=== PATIENT | female | born 1990 | race Two or more races ===

== ENCOUNTER 2016-11-09 18:39 | Emergency (ER) | payer OTHER ==
[2016-11-09 18:49] VITALS: RESP 18
--- NOTE | 2016-11-09 19:10 | EDPHY ---
H & P Time Seen by Provider: 11/09/16 18:57 HPI/ROS: CHIEF COMPLAINT: Back pain, urinary frequency HISTORY OF PRESENT ILLNESS: 26-year-old female presents to the emergency department by private vehicle complaining of mid to low back pain and urinary frequency. Symptoms started yesterday with urinary frequency. She denies dysuria or hematuria. She has a history of frequent bladder infections. She has never had pyelonephritis in the past. She feels nauseous although no vomiting. No abdominal pain. She is currently on her menstrual cycle. She is concerned about possible kidney infection. She states that her pain in her back is not worse with movement. REVIEW OF SYSTEMS: Constitutional: No fever, no chills. Eyes: No double or blurry vision. ENT: No sore throat. Respiratory: No cough, no shortness of breath. Cardiac: No chest pain. Gastrointestinal: Nausea. No abdominal pain, vomiting or diarrhea. Genitourinary: No dysuria. Musculoskeletal: Back pain. No neck pain. Skin: No rashes. Neurological: No headache. Past Medical/Surgical History: Chronic back pain Social History: Single Smoking Status: Current every day smoker Physical Exam: General Appearance: Alert, no distress. Afebrile and nontoxic-appearing. Eyes: Pupils equal and round. Extraocular motions are all intact. ENT: Mouth: Mucous membranes moist. Respiratory: No wheezing, rhonchi, or rales, lungs are clear to auscultation. Cardiovascular: Regular rate and rhythm. Gastrointestinal: Abdomen is soft and nontender, no masses, no rebound or guarding, bowel sounds normal. No CVA tenderness bilaterally. Neurological: Alert and oriented x 3, cranial nerves II through XII grossly intact Skin: Warm and dry, no rashes. Musculoskeletal: Nontender to palpate along the cervical, thoracic or lumbar spine. Neck is supple. Straight leg raise is negative bilaterally. Extremities: Full range of motion and no peripheral edema. Psychiatric: Patient is oriented X 3, there is no agitation. Constitutional: Initial Vital Signs Temperature (C) 36.3 C 11/09/16 18:40 Heart Rate 92 11/09/16 18:40 Respiratory Rate 18 11/09/16 18:40 Blood Pressure 150/91 H 11/09/16 18:40 O2 Sat (%) 98 11/09/16 18:40 O2 Delivery Mode Room Air Allergies/Adverse Reactions: No Known Allergies Allergy (Unverified 11/09/16 18:43) Home Medications: Medication Instructions Recorded Cephalexin [Keflex] 500 mg PO QID #28 cap 11/09/16 Medical Decision Making ED Course/Re-evaluation: 26-year-old female presents to the emergency department with low back pain and history of urinary frequency. The patient has a history of frequent urinary tract infections. She has never had pyelonephritis in the past. The patient is afebrile and does not appear ill. Urinalysis reveals only 5-10 white blood cells. 1-3 red blood cells. Urine cultures pending. Because of the patient's frequent history of urinary tract infections, she will be started on Keflex 500 mg four times daily and will call for the results of her urine culture in 48 hours. Patient was instructed to return if she developed fever, vomiting, abdominal pain, or if she felt worse in any way. The patient was comfortable with this plan. Differential Diagnosis: Including but not limited to urinary tract infection, pyelonephritis, kidney stone, musculoskeletal back pain - Data Points Laboratory Results: 11/09/16 11/09/16 18:58 18:58 Urine Color YELLOW Urine Appearance MODERATELY TURBID Urine pH 7.0 (5.0-7.5) Ur Specific [place] 1.018 (1.002-1.030) Urine Protein NEGATIVE (NEGATIVE) Urine Ketones NEGATIVE (NEGATIVE) Urine Blood 1+ H (NEGATIVE) Urine Nitrate NEGATIVE (NEGATIVE) Urine Bilirubin NEGATIVE (NEGATIVE) Urine Urobilinogen NEGATIVE EU EU (0.2-1.0) Ur Leukocyte Esterase TRACE H (NEGATIVE) Urine RBC 1-3 /hpf /hpf (0-3) Urine WBC 5-10 /hpf H /hpf (0-3) Ur Epithelial Cells TRACE /lpf /lpf (NONE-1+) Urine Mucus TRACE /lpf /lpf (NONE-1+) Urine Glucose NEGATIVE (NEGATIVE) Urine Test NEGATIVE Departure - Departure Disposition: Home, Routine, Self-Care Clinical Impression: Possible urinary tract infection Condition: Good Instructions: Urinary Tract Infection in Women (ED) Additional Instructions: Keflex 500 mg 4 times daily for 1 week as directed. Call [phone] for the results of your urine culture in 48 hours. Return sooner if you developed vomiting, fever, worsening back pain, or if you feel worse in any way. Ibuprofen 600 mg every 8 hours as needed for pain. 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
[2016-11-09 19:14] LABS: COLOR YELLOW; LEUKOCYTE ESTERASE,URINE TRACE (NEGATIVE); NITRITE,URINE NEGATIVE (NEGATIVE)
[2016-11-09 19:21] LABS: MUCUS TRACE /lpf (NONE-1+)
[2016-11-09 21:09] VITALS: BP 111/69; PULSE 79; TEMP 98.4; O2SAT 93
== END 2016-11-09 21:09 | disposition home or self-care (01) ==
DX: M54.5 Low back pain (principal); F17.200 Nicotine dependence, unspecified, uncomplicated

== ENCOUNTER 2016-11-17 17:10 | Emergency (ER) | payer OTHER ==
[2016-11-17 17:26] VITALS: TEMP 97.5
--- NOTE | 2016-11-17 19:25 | EDPHY ---
H & P Stated Complaint: UTI, treated 11/09, not feeling well still Time Seen by Provider: 11/17/16 19:24 HPI/ROS: CHIEF COMPLAINT: Left flank pain HISTORY OF PRESENT ILLNESS: The patient presents to the ED with ongoing left flank pain. She was seen in the emergency department a week ago and diagnosed with possible urinary tract infection. She was treated with Keflex at that point time. The patient continues to complain of ongoing left flank pain which radiates to her left lower quadrant. She reports associated nausea. She denies hematuria. The patient denies dysuria or urinary frequency. The patient does have a history of chronic back pain from herniated discs but states this pain feels different. The patient denies acute numbness or weakness in the lower extremity. She denies additional complaints. REVIEW OF SYSTEMS: A comprehensive 10 point review of systems is otherwise negative aside from elements mentioned in the history of present illness. Source: Patient Exam Limitations: No limitations - Personal History LMP (Females 10-55): 1-7 Days Ago Current Tetanus/Diphtheria Vaccine: Unsure Current Tetanus Diphtheria and Acellular Pertussis (TDAP): Unsure - Medical/Surgical History Hx Asthma: No Hx Chronic Respiratory Disease: No Hx Diabetes: No Hx Cardiac Disease: No Hx Renal Disease: No Hx Cirrhosis: No Hx Alcoholism: No Hx HIV/AIDS: No Hx Splenectomy or Spleen Trauma: No Other PMH: hypercholesterol, UTI's. carpal tunnel syndrome - Social History Smoking Status: Light smoker - Physical Exam Exam: General Appearance: Obese female, no acute distress Eyes: Pupils equal and round no pallor or injection ENT, Mouth: Mucous membranes moist Respiratory: There are no retractions, lungs are clear to auscultation Cardiovascular: Regular rate and rhythm Gastrointestinal: Minimal tenderness to deep palpation left lower quadrant, left CVA tenderness noted Neurological: A&O, normal motor function, normal sensory exam, normal cranial nerves Skin: Warm and dry, no rashes Musculoskeletal: Neck is supple nontender Extremities: symmetrical, full range of motion Constitutional: Initial Vital Signs Temperature (C) 36.4 C 11/17/16 17:23 Heart Rate 88 11/17/16 17:23 Respiratory Rate 16 11/17/16 17:23 Blood Pressure 134/73 H 11/17/16 17:23 O2 Sat (%) 96 11/17/16 17:23 O2 Delivery Mode Room Air Allergies/Adverse Reactions: No Known Allergies Allergy (Verified 11/17/16 17:26) Home Medications: Medication Instructions Recorded Cephalexin [Keflex] 500 mg PO QID #28 cap 11/09/16 Medical Decision Making - Diagnostics Imaging: CT abdomen pelvis without IV contrast: ED Course/Re-evaluation: The patient presents to the ED with ongoing left flank pain. She was seen in the ED last week and diagnosed with a possible urinary tract infection. The patient was started on Keflex at that point time however it appears her urine culture grew out skin jack. The patient has no prior history of nephrolithiasis. Given the patient's undiagnosed left flank pain a CT scan of the abdomen pelvis was ordered to evaluate for possible nephrolithiasis. The results of the study were normal. Patient is noted to have ongoing pyuria. At this point time I will repeat her culture before starting additional antibiotics. The patient will be discharged from the emergency department. I have asked her to follow up with primary care for any unresolved symptoms. The patient will be referred to our on-call urologist for further evaluation of any ongoing dysuria. Differential Diagnosis: Differential diagnosis considered includes nephrolithiasis, ureterolithiasis, pyelonephritis - Data Points Laboratory Results: Laboratory Results 11/17/16 19:50 11/17/16 19:50 11/17/16 11/17/16 11/17/16 20:36 19:50 19:50 WBC 9.18 10^3/uL 10^3/uL (3.80-9.50) RBC 4.45 10^6/uL 10^6/uL (4.18-5.33) Hgb 13.2 g/dL g/dL (12.6-16.3) Hct 40.4 % % (38.0-47.0) MCV 90.8 fL fL (81.5-99.8) MCH 29.7 pg pg (27.9-34.1) MCHC 32.7 g/dL g/dL (32.4-36.7) RDW 13.1 % % (11.5-15.2) Plt Count 273 10^3/uL 10^3/uL (150-400) MPV 10.8 fL fL (8.7-11.7) Neut % (Auto) 59.6 % % (39.3-74.2) Lymph % (Auto) 31.4 % % (15.0-45.0) [place] % (Auto) 5.8 % % (4.5-13.0) Eos % (Auto) 2.2 % % (0.6-7.6) Baso % (Auto) 0.7 % % (0.3-1.7) Nucleat RBC Rel Count 0.0 % % (0.0-0.2) Absolute Neuts (auto) 5.48 10^3/uL 10^3/uL (1.70-6.50) Absolute Lymphs (auto) 2.88 10^3/uL 10^3/uL (1.00-3.00) Absolute Monos (auto) 0.53 10^3/uL 10^3/uL (0.30-0.80) Absolute Eos (auto) 0.20 10^3/uL 10^3/uL (0.03-0.40) Absolute Basos (auto) 0.06 10^3/uL 10^3/uL (0.02-0.10) Absolute Nucleated RBC 0.00 10^3/uL 10^3/uL (0-0.01) Immature Gran % 0.3 % % (0.0-1.1) Immature Gran # 0.03 10^3/uL 10^3/uL (0.00-0.10) Sodium 138 mEq/L mEq/L (134-144) Potassium 3.9 mEq/L mEq/L (3.5-5.2) Chloride 103 mEq/L mEq/L (97-110) Carbon Dioxide 25 mEq/l mEq/l (22-31) Anion Gap 10 mEq/L mEq/L (8-16) BUN 12 mg/dL mg/dL (7-23) Creatinine 0.7 mg/dL mg/dL (0.6-1.0) Estimated GFR > 60 Glucose 87 mg/dL mg/dL (70-100) Calcium 9.7 mg/dL mg/dL (8.5-10.4) Urine Color YELLOW Urine Appearance HAZY Urine pH 6.0 (5.0-7.5) Ur Specific [place] 1.014 (1.002-1.030) Urine Protein NEGATIVE (NEGATIVE) Urine Ketones NEGATIVE (NEGATIVE) Urine Blood 1+ H (NEGATIVE) Urine Nitrate NEGATIVE (NEGATIVE) Urine Bilirubin NEGATIVE (NEGATIVE) Urine Urobilinogen NEGATIVE EU EU (0.2-1.0) Ur Leukocyte Esterase 3+ H (NEGATIVE) Urine RBC 10-15 /hpf H /hpf (0-3) Urine WBC 50-182 /hpf H /hpf (0-3) Ur Epithelial Cells 2+ /lpf H /lpf (NONE-1+) Urine Bacteria TRACE /hpf H /hpf (NONE SEEN) Urine Mucus TRACE /lpf /lpf (NONE-1+) Ur Culture Indicated? INDICATED H (NI) Urine Glucose NEGATIVE (NEGATIVE) Medications Given: Discontinued Medications Hydromorphone HCl (Dilaudid) 1 mg IVP EDNOW ONE Stop: 11/17/16 20:30 Last Admin: 11/17/16 20:38 Dose: 1 mg Sodium Chloride (Ns) 1,000 mls @ 0 mls/hr IV ONCE ONE PRN Reason: Wide Open Stop: 11/17/16 19:30 Last Admin: 11/17/16 19:30 Dose: 1,000 mls Departure - Departure Disposition: Home, Routine, Self-Care Clinical Impression: Left flank pain Condition: Good Instructions: Flank Pain (ED) Additional Instructions: 1. Please contact the emergency department in 2 days to check the results of your urine culture. Antibiotics will be withheld pending the results of that study. You can call us at [phone]. 2. Take Ibuprofen or Motrin 600 mg by mouth three times a day. 3. Your kidney function tests and CT scan demonstrate no evidence of an obvious problem. 4. Please follow up with a urologist you have been referred to for any unimproved symptoms. 5. I do recommend establishing care with a primary care provider. Referrals: James Ruggiero MD [Medical Doctor] - As per Instructions
[2016-11-17] MEDS ORDERED: NS 1,000 ML IV ONE (19:29)
[2016-11-17 20:02] VITALS: PULSE 81
[2016-11-17 20:05] LABS: % IMMATURE GRANULYOCYTES 0.3 % (0.0-1.1); ABSOLUTE IMMATURE GRANULOCYTES 0.03 10^3/uL (0.00-0.10); ADD DIFF? NO; ADD MORPH? NO; ADD SCAN? NO; ATYPICAL LYMPHOCYTE FLAG 0 (0-99); FRAGMENT RBC FLAG 0 (0-99); HEMATOCRIT 40.4 % (38.0-47.0); HEMOGLOBIN 13.2 g/dL (12.6-16.3); LEFT SHIFT FLG 0 (0-99); LIPEMIA HEMOLYSIS FLAG 80 (0-99); MEAN CELL HEMOGLOBIN 29.7 pg (27.9-34.1); MEAN CELL HEMOGLOBIN CONCENTR. 32.7 g/dL (32.4-36.7); MEAN CELL VOLUME 90.8 fL (81.5-99.8); MEAN PLATELET VOLUME 10.8 fL (8.7-11.7); PLATELET CLUMPS FLAG 0 (0-99); PLATELET COUNT 273 10^3/uL (150-400); RED BLOOD CELL COUNT 4.45 10^6/uL (4.18-5.33); RED CELL DISTRIBUTION WIDTH 13.1 % (11.5-15.2)
[2016-11-17 20:18] LABS: ANION GAP 10 mEq/L (8-16); CALCIUM 9.7 mg/dL (8.5-10.4); CARBON DIOXIDE 25 mEq/l (22-31); CHLORIDE 103 mEq/L (97-110); CREATININE 0.7 mg/dL (0.6-1.0); GLOMERULAR FILTRATION RATE > 60; GLUCOSE 87 mg/dL (70-100); POTASSIUM 3.9 mEq/L (3.5-5.2); SODIUM 138 mEq/L (134-144)
[2016-11-17] MEDS ORDERED: HYDROmorphONE/DILAUDID 1 MG/ML SYR IVP ONE (20:29)
[2016-11-17 20:49] LABS: COLOR YELLOW; LEUKOCYTE ESTERASE,URINE 3+ (NEGATIVE); NITRITE,URINE NEGATIVE (NEGATIVE)
[2016-11-17 20:56] LABS: BACTERIA TRACE /hpf (NONE SEEN); MUCUS TRACE /lpf (NONE-1+); WBC,URINE 50-182 /hpf (0-3)
[2016-11-17 21:21] VITALS: BP 118/81; RESP 16; O2SAT 94
== END 2016-11-17 21:21 | disposition home or self-care (01) ==
DX: R10.32 Left lower quadrant pain (principal); F17.200 Nicotine dependence, unspecified, uncomplicated
CPT/HCPCS: 96374; J1170

== ENCOUNTER → 2017-01-23 | Emergency (ER) | payer OTHER ==
[2017-01-23 19:32] VITALS: RESP 16; O2SAT 95
--- NOTE | 2017-01-23 20:10 | EDPHY ---
H & P Time Seen by Provider: 01/23/17 19:46 HPI/ROS: CHIEF COMPLAINT: Right knee pain HISTORY OF PRESENT ILLNESS: Patient is a 26-year-old female who presents emergency department after having her right knee gave out a total of 5 times today. She now has mild discomfort behind her patella. It is worse with movement. She feels as though she cannot range of her knee fully. She did not injure herself in any fall. She states she had similar episode in her left knee. This was diagnosed as "sprained." REVIEW OF SYSTEMS: My complete review of systems is negative except as mentioned in the HPI. Past Medical/Surgical History: Knee sprain, hypercholesterol, carpal tunnel syndrome Smoking Status: Heavy smoker Physical Exam: Vitals noted General Appearance: Alert and no distress. Obese Head: Pupils equal. Normal. Respiratory: No respiratory distress. Cardiac: regular rate and rhythm. Extremities: The patient's reft knee appears normal. She has mild tenderness palpation over right patella. There is no ligamentous instability. She is neurovascular intact distally. Left lower extremity is normal appearing with no tenderness palpation. Skin: No rashes or lesions. Neuro: Alert. Normal mood and affect. Constitutional: Initial Vital Signs Temperature (C) 36.6 C 01/23/17 19:29 Heart Rate 95 01/23/17 19:29 Respiratory Rate 16 01/23/17 19:29 Blood Pressure 157/91 H 01/23/17 19:29 O2 Sat (%) 95 01/23/17 19:29 O2 Delivery Mode Room Air Allergies/Adverse Reactions: avocado Allergy (Verified 01/23/17 19:32) Home Medications: Medication Instructions Recorded NK [No Known Home Meds] 01/23/17 Medical Decision Making ED Course/Re-evaluation: In the emergency department I discussed possible etiologies with the patient. I answered all her questions. X-ray of her right knee was ordered. Right knee x-ray: Please refer the dictated report. No acute disease noted. The patient was placed in a knee immobilizer because of her complaints. She was given crutches. She will weight bear as tolerated. She was given follow- up with Orthopedics. She will return with worsening symptoms. Differential Diagnosis: My differential includes but is not limited to knee strain, knee sprain, fracture, dislocation Departure - Departure Disposition: Home, Routine, Self-Care Clinical Impression: Knee pain, acute Qualifiers: Laterality: right Qualified Code(s): M25.561 - Pain in right knee Condition: Good Instructions: Knee Pain (ED) Additional Instructions: Your x-ray did not show any fracture or dislocation. Wear your splint and weightbear as tolerated. Follow up with Dr. Ag. Referrals: Do Ag MD [Medical Doctor] - 5-7 days, call for appt.
[2017-01-23 21:00] VITALS: BP 131/92; PULSE 100; TEMP 97.7
== END | disposition home or self-care (01) ==
DX: M25.561 Pain in right knee (principal); F17.200 Nicotine dependence, unspecified, uncomplicated
CPT/HCPCS: L1830